=== PATIENT | female | born 1995 | race Caucasian/White ===

== ENCOUNTER 2017-02-16 01:52 | Emergency (ER) | payer OTHER ==
[~2017-02-16] VITALS: Ht 154.9 cm; Wt 95.7 kg
[2017-02-16 03:57] VITALS: BP 132/64
== END 2017-02-16 03:57 | disposition home or self-care (01) ==
LOC: ED 01:52
DX: G44.209 Tension-type headache, unspecified, not intractable (principal); F32.9 Major depressive disorder, single episode, unspecified

== ENCOUNTER 2018-03-06 09:16 | Emergency (ER) | payer OTHER ==
[~2018-03-06] VITALS: Ht 154.9 cm; Wt 90.7 kg
[2018-03-06 09:27] VITALS: Ht 154.9 cm; Wt 90.7 kg
[2018-03-06 15:07] VITALS: BP 103/68
== END 2018-03-06 15:07 | disposition home or self-care (01) ==
LOC: ED 09:16
DX: M54.2 Cervicalgia (principal); M51.45 Schmorl's nodes, thoracolumbar region; F32.9 Major depressive disorder, single episode, unspecified; V43.62XA Car passenger injured in collision with other type car in traffic accident, initial encounter; Y93.89 Activity, other specified; Y92.488 Other paved roadways as the place of occurrence of the external cause; Y99.8 Other external cause status
CPT/HCPCS: 72072

== ENCOUNTER 2019-06-04 06:55 | Emergency (ER) | payer OTHER ==
[~2019-06-04] VITALS: Ht 152.4 cm; Wt 105.2 kg
[2019-06-04 07:09] VITALS: Ht 152.4 cm; Wt 105.2 kg
[2019-06-04 08:03] LABS: CARBON DIOXIDE 25.6 mmol/L (21-32); CHLORIDE SERUM 104 mmol/L (98-107); CREATININE SERUM 0.9 mg/dL (0.6-1.0); GFR1 > 60 mL/min; GLUCOSE SERUM 150 mg/dL (74-106); POTASSIUM SERUM 3.9 mmol/L (3.5-5.1); SODIUM SERUM 140 mmol/L (136-145)
[2019-06-04 08:08] LABS: BASOPHIL % 0.8 % (0-2); PLATELET COUNT 282 x10^3mcL (130-400); RED CELL DISTRIBUTION WIDTH 14.2 % (11.5-14.5)
[2019-06-04 08:34] LABS: ALBUMIN 3.8 g/dL (3.4-5.0); CALCIUM 9.2 mg/dL (8.5-10.1); TOTAL PROTEIN, SERUM 7.4 g/dL (6.4-8.2)
[2019-06-04 08:35] LABS: ALKALINE PHOSPHATASE 73 U/L (46-116); ALT/SGPT 91 U/L (14-59); AST/SGOT 37 U/L (15-37); BILIRUBIN TOTAL 0.3 mg/dL (0.20-1.00); LIPASE 135 IU/L (73-393)
[2019-06-04 12:39] VITALS: BP 111/72
== END 2019-06-04 12:39 | disposition home or self-care (01) ==
LOC: ED 06:55
PROVIDERS: Emergency Medicine
DX: R10.11 Right upper quadrant pain (principal); R11.10 Vomiting, unspecified
CPT/HCPCS: J1885; J2270; J2405; J3010; J3490; J7030; Q0092

== ENCOUNTER 2019-07-20 01:10 | Emergency (ER) | payer OTHER ==
[~2019-07-20] VITALS: Ht 154.9 cm; Wt 101.7 kg
[2019-07-20 01:25] VITALS: Ht 154.9 cm; Wt 101.7 kg
[2019-07-20 04:35] VITALS: BP 120/75
== END 2019-07-20 04:35 | disposition home or self-care (01) ==
LOC: ED 01:10
DX: L50.9 Urticaria, unspecified (principal)